=== PATIENT | female | born 1995 | race Caucasian/White ===

== ENCOUNTER 2020-02-08 18:26 | Emergency (ER) | payer SELFPAY ==
[~2020-02-08] VITALS: Ht 162.6 cm; Wt 52.2 kg
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
[2020-02-08] MEDS ORDERED: IBUPROFEN 600 MG TABLET ONE (18:51)
[2020-02-08] MEDS ORDERED: IBUPROFEN 600 MG TABLET PO ONE (19:00)
--- NOTE | 2020-02-08 19:03 | NUR ---
PREFITTER DOORS AT BEDSIDE FOR XRAY
--- NOTE | 2020-02-08 19:30 | NUR ---
ENDORSED TO JACOB GRAVES.
--- NOTE | 2020-02-08 19:50 | NUR ---
EMT AT BEDSIDE FOR SPLINT PLACEMENT.
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
--- NOTE | 2020-02-08 20:02 | NUR ---
Patient discharged to home in stable condition. Written and verbal after care instructions given. Patient verbalizes understanding of instruction and RX. Pt told to follow up.
[2020-02-08 20:06] VITALS: BP 101/61
== END 2020-02-08 20:16 | disposition home or self-care (01) ==
LOC: ER 18:37
DX: S82.421A Displaced transverse fracture of shaft of right fibula, initial encounter for closed fracture (principal); S80.211A Abrasion, right knee, initial encounter; V98.8XXA Other specified transport accidents, initial encounter; Y93.89 Activity, other specified; Y92.89 Other specified places as the place of occurrence of the external cause; Y99.8 Other external cause status
CPT/HCPCS: 73590-TC; 73610-TC